=== PATIENT | female | born 1985 | race Caucasian/White ===

== ENCOUNTER 2019-03-12 16:40 | Emergency (ER) | payer BC, OTHER ==
[~2019-03-12] VITALS: Ht 162.6 cm; Wt 61.2 kg
[2019-03-12] MEDS ORDERED: SYNTHROID75 MCG PO (16:46)
[2019-03-12] MEDS ORDERED: TOPROL XL25 MG PO (16:46)
[2019-03-12] MEDS ORDERED: PRILOSEC OTC20 MG PO (16:46)
[2019-03-12] MEDS ORDERED: ZANAFLEX4 M1 PO (16:47)
--- NOTE | 2019-03-12 16:50 | EKG ---
[address] [address] ELECTROCARDIOGRAM REPORT Name: STEPHANIE STOCK Room #: [facility]..#: [id number] Admission: Attend Phys: Discharge: Date of : 89 Report #: [id number] THIS REPORT FOR: //name// [facility] ED Test Date: 2019-03-12 Test Time: 16:48:25 Pat Name: STEPHANIE STOCK Department: Room: Gender: F Crystallographer: FABIANO : 1985 Requested By: Bran Lopes Order Number: [id number] MD: Jose Manuel Faith Measurements Intervals [place] Rate: 90 P: 29 IA: 141 QRS: 40 QRSD: 118 T: 22 QT: 371 QTc: 454 Interpretive Statements Sinus rhythm Nonspecific intraventricular conduction delay No previous ECG available for comparison Electronically Signed On 03-12-2019 16:50:47 [employer]PORT MANAGER by Jose Manuel Faith [email or web address] <ELECTRONICALLY SIGNED> By: Jose Manuel Faith MD 03/12/19 [id number] Jose Manuel Faith MD /EPI
[2019-03-12 17:31] LABS: BASOPHILS 0.9 % (0.0-2.0); EOSINOPHILS 1.2 % (0.0-3.0); HEMATOCRIT 41.4 % (37.0-47.0); HEMOGLOBIN 14.1 gm/dL (12.0-15.0); LYMPHOCYTES 33.4 % (24.0-44.0); MCH 26.7 pg (26.0-34.0); MCV 78.7 fL (80.0-100.0); MONOCYTES 3.4 % (1.0-8.0); PLATELET COUNT 310 thou/uL (150-400); POLYS 61.1 % (36.0-66.0); RBC 5.26 mil/uL (4.20-5.00); RDW 13.5 % (10.5-14.5); WBC 6.5 thou/uL (4.0-11.0)
[2019-03-12 17:34] LABS: ANION GAP 11 mmol/L (7-16); BUN 7 mg/dL (7-18); CALCIUM 10.1 mg/dL (8.5-10.1); CHLORIDE 101 mmol/L (98-107); CO2 27 mmol/L (21-32); CREATININE 0.8 mg/dL (0.6-1.0); GLUCOSE 102 mg/dL (74-106); POTASSIUM 3.4 mmol/L (3.5-5.1); SODIUM 139 mmol/L (136-145)
[2019-03-12 17:43] LABS: TROPONIN-I <0.06 ng/mL (<0.06)
[2019-03-12 20:02] LABS: URINE BILIRUBIN NEGATIVE (Negative); URINE BLOOD NEGATIVE (Negative); URINE CLARITY CLEAR; URINE COLOR YELLOW; URINE GLUCOSE-RANDOM* NEGATIVE (Negative); URINE KETONES NEGATIVE (Negative); URINE LEUKOCYTES-REFLEX TRACE (Negative); URINE NITRITE-REFLEX NEGATIVE (Negative); URINE PROTEIN (DIPSTICK) NEGATIVE (Negative); URINE SPECIFIC GRAVITY 1.015 (1.005-1.035); URINE UROBILINOGEN 0.2 E.U./dl (0.2-1.0)
[2019-03-12] MEDS ORDERED: PREDNISONE 20 M20 MG PO (20:52)
[2019-03-12] MEDS ORDERED: NORCO 5-325 TA1 EAC1 PO (20:52)
[2019-03-12 22:41] VITALS: BP 141/87
== END 2019-03-12 22:42 | disposition home or self-care (01) ==
LOC: ER 16:40
PROVIDERS: Emergency Medicine
DX: K21.9 Gastro-esophageal reflux disease without esophagitis (principal); N80.9 Endometriosis, unspecified; Q67.6 Pectus excavatum; Q61.5 Medullary cystic kidney; Z90.49 Acquired absence of other specified parts of digestive tract; Z90.710 Acquired absence of both cervix and uterus

== ENCOUNTER 2019-05-20 14:30 | Emergency (ER) | payer BC, OTHER ==
[~2019-05-20] VITALS: Ht 154.9 cm; Wt 61.2 kg
[~2019-05-20 14:30] MED LIST: NORCO 5-325 TA1 EAC1 PO; PREDNISONE 20 M20 MG PO; PRILOSEC OTC20 MG PO; SYNTHROID75 MCG PO; TOPROL XL25 MG PO; ZANAFLEX4 M1 PO
[2019-05-20 16:16] LABS: ABSOLUTE NEUTROPHILS 7.6 thou/uL (1.4-8.2); BASOPHILS 0.7 % (0.0-2.0); EOSINOPHILS 0.4 % (0.0-3.0); HEMATOCRIT 41.7 % (37.0-47.0); HEMOGLOBIN 14.1 gm/dL (12.0-15.0); MCHC 33.8 g/dL (28.0-37.0); MCV 79.9 fL (80.0-100.0); MONOCYTES 2.4 % (1.0-8.0); PLATELET COUNT 389 thou/uL (150-400); POLYS 84.5 % (36.0-66.0); RBC 5.22 mil/uL (4.20-5.00); RDW 13.9 % (10.5-14.5)
[2019-05-20 16:29] LABS: CALCIUM 9.6 mg/dL (8.5-10.1); CREATININE 0.7 mg/dL (0.6-1.0); POTASSIUM 4.2 mmol/L (3.5-5.1)
[2019-05-20 16:35] LABS: ALBUMIN 4.8 g/dL (3.4-5.0); TOTAL BILIRUBIN 1.5 mg/dL (<0.1-1.0); TOTAL PROTEIN 8.7 g/dL (6.4-8.2)
[2019-05-20] MEDS ORDERED: SUMATRIPTAN SUC50 MG PO (17:30)
[2019-05-20] MEDS ORDERED: TRAMADOL 50 MG50 MG PO (17:30)
[2019-05-20] MEDS ORDERED: ZOFRAN ODT4 MG PO ×2 (18:46→18:53)
[2019-05-20] MEDS ORDERED: MOBIC15 MG PO (18:46)
[2019-05-20 18:52] VITALS: BP 165/109
[2019-05-20] MEDS ORDERED: ULTRAM 50MG TAB50 MG PO (18:53)
== END 2019-05-20 19:01 | disposition home or self-care (01) ==
LOC: ER 14:30
PROVIDERS: Emergency Medicine
DX: R10.31 Right lower quadrant pain (principal); R11.0 Nausea; F17.290 Nicotine dependence, other tobacco product, uncomplicated; Z90.49 Acquired absence of other specified parts of digestive tract; Z90.710 Acquired absence of both cervix and uterus